=== PATIENT | female | born 2000 | race Caucasian/White ===

== ENCOUNTER 2021-05-25 13:20 | Emergency (ER) | payer BC ==
[2021-05-25 14:26] LABS: HEMOGLOBIN 12.1 gm/dl (12.3-15.3); RED BLOOD COUNT 4.48 M/UL (4.00-5.10); WHITE BLOOD COUNT 8.5 K/UL (4.5-11.0)
[2021-05-25 14:46] LABS: BUN/CREATININE RATIO 19 (0-10)
== END 2021-05-25 18:15 | disposition home or self-care (01) ==
LOC: ER1 13:20
PROVIDERS: Family Medicine
DX: N83.201 Unspecified ovarian cyst, right side (principal)
CPT/HCPCS: 76830; 80053; 81001; 82150; 83690; 84703; 85025; 99284

== ENCOUNTER → 2021-12-21 | Outpatient (CLI) | payer BC ==
[~2021-12-21] MED LIST: ESCITALOPRAM OXA5 MG PO; VITAMIN D21250 MCG PO
[2021-12-21 09:20] LABS: RED BLOOD COUNT 4.97 M/UL (4.00-5.10); WHITE BLOOD COUNT 6.7 K/UL (4.5-11.0)
== END ==
LOC: OPSV2 07:58
PROVIDERS: Obstetrics & Gynecology
DX: Z01.812 Encounter for preprocedural laboratory examination (principal); N83.201 Unspecified ovarian cyst, right side
CPT/HCPCS: 36415; 81001; 85025

== ENCOUNTER → 2021-12-25 | Day surgery (SDC) | payer BC ==
[~2021-12-25] MED LIST changes: +AUGMENTIN 500-500 MG PO; +COLACE100 MG PO; +IBUPROFEN800 MG PO; +PERCOCET 5/325 T1 EA PO
== END | disposition home or self-care (01) ==
LOC: OR 07:30
DX: N83.291 Other ovarian cyst, right side (principal); N39.0 Urinary tract infection, site not specified; K66.0 Peritoneal adhesions (postprocedural) (postinfection); F41.9 Anxiety disorder, unspecified; F32.A Depression, unspecified; E66.9 Obesity, unspecified; Z68.41 Body mass index [BMI] 40.0-44.9, adult; Z79.899 Other long term (current) drug therapy; Z20.822 Contact with and (suspected) exposure to COVID-19
CPT/HCPCS: 84703; J0690; J1100; J1170; J1885; J2250; J2405; J2704; J2710; J3010; J7120